=== PATIENT | male | born 1990 | race African-American/Black ===

== ENCOUNTER 2016-10-14 15:47 | Emergency (ER) | payer OTHER ==
[~2016-10-14] VITALS: Ht 177.8 cm; Wt 79.5 kg
[2016-10-14 15:56] VITALS: Ht 177.8 cm; Wt 79.5 kg
[2016-10-14] MEDS ORDERED: ONDANSETRON INJ 2 MG/ML 2 ML VIAL IV STA (16:12)
[2016-10-14] MEDS ORDERED: KETOROLAC TROMETHAMINE 30 MG/ML VIAL IV STA (16:12)
[2016-10-14] MEDS ORDERED: SODIUM CHLORIDE 0.9% 1000ML 1,000 ML IV ONE (16:15)
[2016-10-14] MEDS ORDERED: ACETAMINOPHEN IV 1,000 MG in EMPTY BAG 0 ML IV ONE (16:15)
[2016-10-14 16:48] LABS: URINE APPEARANCE CLEAR (CLEAR); URINE BILIRUBIN NEG (NEG); URINE COLOR YELLOW; URINE NITRITE NEG (NEG); URINE PH 6.5 (4.5-7.5); URINE SPECIFIC GRAVITY 1.028 (1.000-1.030); UROBILINOGEN NEG (NEG); ZZUR CULT IF INDIC CLEAN CATCH NO
[2016-10-14 16:49] LABS: MANUAL MICROSCOPIC REQUIRED? NO; REVIEW REQ? NO
[2016-10-14] MEDS ORDERED: OPTIRAY 320 IV PRN (17:00)
[2016-10-14 17:08] LABS: BASO % 0.5 %; BASO ABS # 0.03 K/uL (0-0.2); COMPLETE YES; HEMATOCRIT 43.8 % (42-52); IG% 0.3 %; LYMPH % 22.3 %; LYMPH ABS # 1.35 K/uL (1.2-3.4); MEAN CELL VOLUME 85.7 fL (80-100); MEAN CORPUSCULAR HEMOGLOBIN 28.8 pg (25-34); MEAN CORPUSCULAR HGB CONC 33.6 g/dl (32-36); MEAN PLATELET VOLUME 10.6 fL (7.4-10.4); MONO % 5.8 %; NEUT % 71.1 %; PLATELET COUNT 181 K/uL (130-400); RED BLOOD COUNT 5.11 M/uL (4.7-6.1); WHITE BLOOD COUNT 6.05 K/uL (4.8-10.8)
[2016-10-14 17:32] LABS: BUN/CREATININE RATIO 11.8 (10-20); CREATININE 1.2 mg/dl (0.60-1.40); POTASSIUM 4.3 mmol/L (3.5-5.1)
[2016-10-14 17:43] LABS: ALB/GLOB RATIO 0.8 (0.9-2); THYROID STIMULATING HORMONE 0.573 uIu/ml (0.300-4.500)
[2016-10-14 18:53] VITALS: TEMP 37
--- NOTE | 2016-10-14 19:02 | DIAGNOSTIC IMAGING REPORT ---
CT ABD/PELVIS IV AND ORAL CONT CLINICAL HISTORY: Abdominal pain fever, diarrhea. COMPARISON STUDY: None. TECHNIQUE: Following the IV administration of 117 mL of Optiray-320, CT scan of the abdomen and pelvis was performed from the lung bases to the proximal femurs. Images are reviewed in the axial, sagittal, and coronal planes. IV contrast was administered without complication. CT DOSE: 424.52 mGy.cm FINDINGS: Lower chest: There are minor dependent atelectatic changes. Liver: The contrast-enhanced liver is normal in size, contour, and attenuation. There is no intrahepatic biliary ductal dilatation. The hepatic veins and portal veins are patent. Gallbladder: Unremarkable. Spleen: Normal in size and attenuation. Pancreas: Unremarkable. Adrenal glands: Unremarkable. Kidneys: There is symmetric renal cortical enhancement. The kidneys are normal in size without hydronephrosis. Bowel: There are no transition zones indicate bowel obstruction. There is mild fecal retention. Evaluation the bowel is difficult due to a possibility of intra-abdominal fat. The appendix is not visualized with certainty. No pericecal inflammatory changes are visualized. There is no evidence of acute diverticulitis. Peritoneum: There is no intraperitoneal free air or abdominal ascites. There is rectus diastases. Vasculature: The abdominal aorta is normal in course and caliber. Adenopathy: There is mild nonspecific enlargement of aortocaval and iliac lymph nodes. Pelvic viscera: The bladder, and pelvic viscera are unremarkable. Skeletal structures: No destructive osseous lesions are seen. IMPRESSION: 1. No evidence of bowel obstruction. No evidence of free air 2. No acute inflammatory changes (difficult study to interpret due to the paucity of intra-abdominal fat) 3. Mild fecal retention. Please correlate with any symptoms of constipation. 4. Minor rectus diastases 5. Nonspecific mild enlargement of aortocaval and iliac lymph nodes. Electronically signed by: Ovidio Calderón M.D. 10/14/2016 7:01 PM Dictated Date/Time: 10/14/2016 6:51 PM
[2016-10-14] MEDS ORDERED: NORCO 5/325MG HOME PACK PO ONE (19:45)
[2016-10-14] MEDS ORDERED: ONDANSETRON HOME PACK 4MG OD TAB PO ONE (19:45)
[2016-10-14 19:58] VITALS: BP 115/63; PULSE 69; O2SAT 99
--- NOTE | 2016-10-14 22:22 | EMERGENCY ROOM VISIT NOTE ---
History First contact with patient: 15:58 Chief Complaint: ABDOMINAL PAIN Stated Complaint: ABDOMINAL PAIN, FEVER, FATIGUE, DIARRHEA, HEADACHE Nursing Triage Summary: triage note: pt reports mid abd 4-5 days ago. pt denies any nausea vomitting, diarrhea, constipation. History of Present Illness The patient is a 25 year old male who presents to the Emergency Room with complaints of abdominal pain, fatigue, and fever for the past 4-5 days. The patient does not have a history of abdominal surgery in the past. He is not have chest pain, chest tightness, or shortness of breath. He went to an urgent care clinic earlier today, and was referred to the ER for further evaluation. The patient has been using the bathroom as normal. He does not have chronic medical disease. He has been eating and drinking as normal. He does not report aggravating or alleviating factors. He rates his current discomfort a 5/ 10. He has not taken anything [id number] for his symptoms. Review of Systems More than 10 systems were reviewed and otherwise negative with the exception of history of present illness. Past Medical/Surgical History No chronic medical disease Family History No pertinent family history Social History Smoking Status: Never Smoker Alcohol Use: occasionally Drug Use: none Marital Status: single Current/Historical Medications No Active Prescriptions or Reported Meds Allergies Coded Allergies: No Known Allergies (Unverified , 10/14/16) Physical Exam Vital Signs Date Time Temp Pulse Resp B/P Pulse Ox O2 Delivery O2 Flow Rate FiO2 10/14/16 19:58 69 16 115/63 99 10/14/16 19:11 57 16 110/68 96 Room Air 10/14/16 18:53 37.0 10/14/16 17:59 63 16 120/63 97 Room Air 10/14/16 15:56 38.3 76 18 106/64 99 Room Air Pain Rating (0-10): 2.0 Physical Exam VITALS: Vitals are noted on the nurse's note and reviewed by myself. Vital signs stable. GENERAL: Well-developed, well-nourished, white male, who is in no acute distress and resting comfortably. Patient is cooperative with the examination. HEAD: Normocephalic atraumatic. HEART: Regular rate and rhythm without murmurs gallops or rubs. LUNGS: Clear to auscultation bilaterally without wheezes, rales or rhonchi. No retractions or accessory muscle use. ABDOMEN: Positive normal bowel sounds x 4. Soft with generalized periumbilical tenderness on palpation. No rebound or guarding. No CVA tenderness. MUSCULOSKELETAL: No muscle atrophy, erythema, or edema noted. Full range of motion without joint tenderness in all extremities. NEURO: Patient was alert and oriented to person place and time. CN II through XII grossly intact. Medical Decision & Procedures ER Provider Diagnostic Interpretation: CT ABD/PELVIS IV AND ORAL CONT CLINICAL HISTORY: Abdominal pain fever, diarrhea. COMPARISON STUDY: None. TECHNIQUE: Following the IV administration of 117 mL of Optiray-320, CT scan of the abdomen and pelvis was performed from the lung bases to the proximal femurs. Images are reviewed in the axial, sagittal, and coronal planes. IV contrast was administered without complication. CT DOSE: 424.52 mGy.cm FINDINGS: Lower chest: There are minor dependent atelectatic changes. Liver: The contrast-enhanced liver is normal in size, contour, and attenuation. There is no intrahepatic biliary ductal dilatation. The hepatic veins and portal veins are patent. Gallbladder: Unremarkable. Spleen: Normal in size and attenuation. Pancreas: Unremarkable. Adrenal glands: Unremarkable. Kidneys: There is symmetric renal cortical enhancement. The kidneys are normal in size without hydronephrosis. Bowel: There are no transition zones indicate bowel obstruction. There is mild fecal retention. Evaluation the bowel is difficult due to a possibility of intra-abdominal fat. The appendix is not visualized with certainty. No pericecal inflammatory changes are visualized. There is no evidence of acute diverticulitis. Peritoneum: There is no intraperitoneal free air or abdominal ascites. There is rectus diastases. Vasculature: The abdominal aorta is normal in course and caliber. Adenopathy: There is mild nonspecific enlargement of aortocaval and iliac lymph nodes. Pelvic viscera: The bladder, and pelvic viscera are unremarkable. Skeletal structures: No destructive osseous lesions are seen. IMPRESSION: 1. No evidence of bowel obstruction. No evidence of free air 2. No acute inflammatory changes (difficult study to interpret due to the paucity of intra-abdominal fat) 3. Mild fecal retention. Please correlate with any symptoms of constipation. 4. Minor rectus diastases 5. Nonspecific mild enlargement of aortocaval and iliac lymph nodes. Laboratory Results 10/14/16 16:34 Red Blood Count 5.11, Mean Corpuscular Volume 85.7, Mean Corpuscular Hemoglobin 28.8, Mean Corpuscular Hemoglobin Concent 33.6, Mean Platelet Volume 10.6, Neutrophils (%) (Auto) 71.1, Lymphocytes (%) (Auto) 22.3, Monocytes (%) (Auto) 5.8, Eosinophils (%) (Auto) 0.0, Basophils (%) (Auto) 0.5, Neutrophils # (Auto) 4.30, Lymphocytes # (Auto) 1.35, Monocytes # (Auto) 0.35, Eosinophils # (Auto) 0.00, Basophils # (Auto) 0.03 10/14/16 16:34 Test 10/14/16 16:25 10/14/16 16:34 10/14/16 17:24 Urine Color YELLOW Urine Appearance CLEAR (CLEAR) Urine pH 6.5 (4.5-7.5) Urine Specific [place] 1.028 (1.000-1.030) Urine Protein TRACE (NEG) Urine Glucose (UA) NEG (NEG) Urine Ketones TRACE (NEG) Urine Occult Blood NEG (NEG) Urine Nitrite NEG (NEG) Urine Bilirubin NEG (NEG) Urine Urobilinogen NEG (NEG) Urine Leukocyte Esterase NEG (NEG) Urine WBC (Auto) 1-5 /hpf (0-5) Urine RBC (Auto) 0-4 /hpf (0-4) Urine Hyaline Casts (Auto) 1-5 /lpf (0-5) Urine Epithelial Cells (Auto) 10-20 /lpf (0-5) Urine Bacteria (Auto) NEG (NEG) White Blood Count 6.05 K/uL (4.8-10.8) Red Blood Count 5.11 M/uL (4.7-6.1) Hemoglobin 14.7 g/dL (14.0-18.0) Hematocrit 43.8 % (42-52) Mean Corpuscular Volume 85.7 fL (80-100) Mean Corpuscular Hemoglobin 28.8 pg (25-34) Mean Corpuscular Hemoglobin Concent 33.6 g/dl (32-36) Platelet Count 181 K/uL (130-400) Mean Platelet Volume 10.6 fL (7.4-10.4) Neutrophils (%) (Auto) 71.1 % Lymphocytes (%) (Auto) 22.3 % Monocytes (%) (Auto) 5.8 % Eosinophils (%) (Auto) 0.0 % Basophils (%) (Auto) 0.5 % Neutrophils # (Auto) 4.30 K/uL (1.4-6.5) Lymphocytes # (Auto) 1.35 K/uL (1.2-3.4) Monocytes # (Auto) 0.35 K/uL (0.11-0.59) Eosinophils # (Auto) 0.00 K/uL (0-0.5) Basophils # (Auto) 0.03 K/uL (0-0.2) RDW Standard Deviation 42.4 fL (36.4-46.3) RDW Coefficient of Variation 13.4 % (11.5-14.5) Immature Granulocyte % (Auto) 0.3 % Immature Granulocyte # (Auto) 0.02 K/uL (0.00-0.02) Anion Gap 8.0 mmol/L (3-11) Est Creatinine Clear Calc Drug Dose 97.2 ml/min Estimated GFR () 96.8 Estimated GFR (Non- 83.5 BUN/Creatinine Ratio 11.8 (10-20) Calcium Level 9.0 mg/dl (8.5-10.1) Total Bilirubin 0.5 mg/dl (0.2-1) Aspartate Amino Transf (AST/SGOT) 20 U/L (15-37) Alanine Aminotransferase (ALT/SGPT) 23 U/L (12-78) Alkaline Phosphatase 69 U/L (45-117) Total Protein 8.9 gm/dl (6.4-8.2) Albumin 3.9 gm/dl (3.4-5.0) Globulin 5.0 gm/dl (2.5-4.0) Albumin/Globulin Ratio 0.8 (0.9-2) Lipase 98 U/L (73-393) Thyroid Stimulating Hormone (TSH) 0.573 uIu/ml (0.300-4.500) Monoscreen NEG (NEG) Lactic Acid Level 0.9 mmol/L (0.4-2.0) Medications Administered Medications (Trade) Dose Ordered Sig/Jasper Route Start Time Stop Time Status Last Admin Dose Admin Sodium Chloride (Nss 1000ml) 1,000 ml @ 999 mls/hr Q1H1M ONCE IV 10/14/16 16:15 10/14/16 17:15 DC 10/14/16 16:37 999 MLS/HR Ondansetron HCl (Zofran Inj) 4 mg NOW STAT IV 10/14/16 16:12 10/14/16 16:15 DC 10/14/16 16:38 4 MG Ketorolac Tromethamine 30 mg 30 mg NOW STAT IV 10/14/16 16:12 10/14/16 16:15 DC 10/14/16 16:37 30 MG Acetaminophen/ Empty Bag (Ofirmev Iv/ Empty Iv Bag 100ml) 100 ml @ 400 mls/hr NOW ONCE IV 10/14/16 16:15 10/14/16 16:29 DC 10/14/16 16:37 400 MLS/HR Acetaminophen/ Hydrocodone Bitart ([place] 5/325mg Home Pack) 1 homepack UD ONCE PO 10/14/16 19:45 10/14/16 19:46 DC 10/14/16 19:53 1 HOMEPACK Ondansetron HCl (ZOFRAN ODT 4MG Home Pack) 1 homepack UD ONCE PO 10/14/16 19:45 10/14/16 19:46 DC 10/14/16 19:53 1 HOMEPACK ED Course Physical exam and history were performed. Nursing notes and EMR were reviewed. Patient appears to have abdominal pain with a fever for the past few days. The patient does not appear toxic on examination. IV access was established and labs were obtained. The patient was hydrated and medicated as above. Because of his symptoms I did elect to perform a CT scan of his abdomen and pelvis. The patient's blood work is as above and was reviewed. He does not have a significant elevated white blood cell count, gross anemia, bandemia, or significant electrolyte imbalance. Lipase and transaminases are nondiagnostic. Lactic acid was negative with blood cultures pending. Urine is without signs of infection. The patient CT scan does not show an obvious distinct acute process. He may have some nonspecific lymph nodes, and this could be in the context of a viral infection. The patient was reevaluated multiple times throughout the course of his stay. Repeat abdominal examination does not show any worsening of his symptoms. He continues to be very comfortable on examination. I discussed options of care with the patient, and he does feel comfortable with discharge home. He will be given a short course of Zofran and Vicodin for symptomatic care. The patient is to follow closely with his primary care physician or return to the emergency department with any new, worsening, or concerning symptoms. He was pleased with this plan and voiced understanding. He rated his discomfort a 0/10 at the time of his departure. The chart was completed utilizing [employer] Voice Recognition Software. Grammatical errors, random word insertions, pronoun errors, and incomplete sentences are an occasional consequence of this system due to software limitations, ambient noise, and hardware issues. Any formal questions or concerns about the content, text, or information contained within the body of this dictation should be directly addressed to the provider for clarification. . Medical Decision Differential diagnosis: Etiologies such as appendicitis, diverticulitis, PUD, biliary pathology, UTI, pancreatitis, obstruction, mesenteric ischemia, aortic pathology, infections, inflammatory bowel disease, renal colic, as well as others were entertained. Impression Primary Impression: Abdominal pain Departure Information Dispostion Home / Self-Care Condition GOOD Prescriptions No Active Prescriptions or Reported Meds Forms HOME CARE DOCUMENTATION FORM, IMPORTANT VISIT INFORMATION Patient Instructions My [facility] Additional Instructions You were seen and evaluated today on an emergency basis only. This is not a substitute for, or an effort to provide, complete comprehensive medical care. It is not possible to recognize and treat all injuries or illnesses in a single emergency department visit. For this reason it is recommended that you followup with your primary care physician in the next few days for recheck of your condition. For baseline pain relief you may alternate ibuprofen and acetaminophen every 4 hours for pain control. Take 600 mg ibuprofen (Advil) and then 4 hours later take 1000 mg acetaminophen (Tylenol). Do not take more than 3000 mg acetaminophen in a single day. [place] (hydrocodone/acetaminophen) 5/325 mg (homepack) every 6 hours as needed for worsening breakthrough pain. Do not drink or drive on [place]. This medication will likely make you tired. Do not take [place] and Tylenol at the same time as both contain acetaminophen. [place] may cause constipation. You may wish to take an kzgl-rgd-rnbgurl stool softener like Colace if this occurs. Zofran (homepack) 1 tablet every 6 hrs as needed for nausea. You are welcome to return to the emergency department anytime with new, worsening, or concerning symptoms.
== END 2016-10-14 20:00 | disposition home or self-care (01) ==
LOC: C.EDB 15:50 → C.EDC 20:00
DX: R10.9 Unspecified abdominal pain (principal)

== ENCOUNTER 2016-12-12 13:32 | Emergency (ER) | payer OTHER ==
[~2016-12-12] VITALS: Ht 177.8 cm; Wt 81.5 kg
[2016-12-12 13:36] VITALS: TEMP 36.6; Ht 177.8 cm; Wt 81.5 kg
[2016-12-12] MEDS ORDERED: BUPIVACAINE 0.5 % 5 MG/1 ML MPF 30ML VIAL INFIL ONE (14:30)
[2016-12-12] MEDS ORDERED: XYLOCAINE 1%/SOD BICARB 20 ML VIAL INFIL ONE (14:30)
--- NOTE | 2016-12-12 15:44 | DIAGNOSTIC IMAGING REPORT ---
LEFT FINGER(S) MIN 2 VIEWS ROUTINE CLINICAL HISTORY: LEFT THUMB, PAIN AND SWELLING, PARONYCHIA COMPARISON: None FINDINGS: Alignment of the left thumb is anatomic. There is no fracture or osseous lesion. There is no evidence of osteomyelitis of the left thumb. Minimal degenerative changes are noted at the left first metacarpophalangeal joint. IMPRESSION: No fracture or evidence of osteomyelitis within the left thumb. Electronically signed by: Haris Reinoso M.D. 12/12/2016 3:42 PM Dictated Date/Time: 12/12/2016 3:41 PM
[2016-12-12] MEDS ORDERED: CEPH500C PO (16:53)
[2016-12-12] MEDS ORDERED: SULF800T23 PO (16:53)
--- NOTE | 2016-12-12 16:54 | EMERGENCY ROOM VISIT NOTE ---
ED Visit Note First contact with patient: 13:45 CHIEF COMPLAINT: Left thumb pain and swelling times one and half weeks Patient is a [id number] 26-year-old -[place] male who presents to the emergency department for evaluation of left thumb pain and swelling. His symptoms have been going on for about a week and a half. He denies any injury prior to the onset of his symptoms. He states that the nail fold " looks green", and it has become progressively more swollen. He tried soaking it in warm soapy water. His symptoms worsened after he bumped it last night. There has been no drainage or discharge from the area. He rates his pain a 3/ 10. REVIEW OF SYSTEMS: Review of systems as per HPI. All other systems reviewed were negative. At least 6 systems reviewed. PMH: Electronic medical records are reviewed and summarized as above/below. See Problem List. Tetanus is up-to-date. SOCIAL HISTORY: Patient living at home. Employed. Nonsmoker. PHYSICAL EXAM: Vital Signs: Reviewed Nurse's notes. Examination of the left thumb show slight swelling, tenderness and fluctuance of the ulnar nail fold. The thumb is circumferentially swollen, IP joint and MCP joints are nontender, and range of motion is full. There is no pus under the nail. There is no lymphangitic streaking up the hand. ED course: The patient was seen and evaluated as above. X-rays of the left thumb were obtained, negative for acute fracture, bony abnormality or osteomyelitic changes. The patient's finger was prepped with Betadine and draped sterilely. A digital block was performed using a 2:1 mixture of 1% plain buffered lidocaine area when adequate anesthesia was obtained, the affected nail fold was elevated from the cuticle and the nail. Abscess cavity was incised and purulent and bloody material was drained and more was expressed. The area was irrigated with normal saline solution. Patient tolerated the procedure well. Bacitracin and a light dressing were applied. Patient was encouraged to continue warm soapy water soaks. He was given a prescription for Keflex and Bactrim, however if his symptoms markedly improve in the next 24 hours, he can hold off on the antibiotics. I do not suspect osteomyelitis or infectious tenosynovitis. Medication reconciliation: I attest that I have personally reviewed the patient' s current medication list. Blood pressure screening : Patient was found to have normal blood pressure on screening and does not require follow-up. LEFT FINGER(S) MIN 2 VIEWS ROUTINE CLINICAL HISTORY: LEFT THUMB, PAIN AND SWELLING, PARONYCHIA COMPARISON: None FINDINGS: Alignment of the left thumb is anatomic. There is no fracture or osseous lesion. There is no evidence of osteomyelitis of the left thumb. Minimal degenerative changes are noted at the left first metacarpophalangeal joint. IMPRESSION: No fracture or evidence of osteomyelitis within the left thumb. Problem List Medical Problems: (1) Abdominal pain Status: Resolved (2) Abdominal pain Status: Resolved (3) Alcohol overdose Status: Resolved Current/Historical Medications Scheduled Cephalexin Monohydrate (Keflex), 500 MG PO TID Sulfa/Trimethoprim (Bactrim Ds 800MG/160MG), 1 TAB PO BID Allergies Coded Allergies: No Known Allergies (Unverified , 12/12/16) Vital Signs Date Time Temp Pulse Resp B/P (MAP) Pulse Ox O2 Delivery O2 Flow Rate FiO2 12/12/16 17:05 55 16 139/70 100 12/12/16 13:36 36.6 111 20 124/67 100 Room Air Medications Administered Medications (Trade) Dose Ordered Sig/Jasper Route Start Time Stop Time Status Last Admin Dose Admin Bupivacaine HCl ([place] 0.5% MPF Inj) 30 ml NOW ONCE INFIL 12/12/16 14:30 12/12/16 14:31 DC 12/12/16 14:30 30 ML Departure Information Impression Primary Impression: Paronychia of left thumb Prescriptions Sulfa/Trimethoprim (Bactrim Ds 800MG/160MG) Tab 1 TAB PO BID, #10 TAB Prov: Xenia Baum PA 12/12/16 Cephalexin Monohydrate (Keflex) 500 Mg Cap 500 MG PO TID, #15 CAP Prov: Xenia Baum PA 12/12/16 Referrals No Doctor, Assigned (PCP) Patient Instructions My [facility] Additional Instructions Dressing changes daily, more often if it becomes saturated or soiled. Cover with bandage and antibiotic ointment until healed. Warm soapy water soaks. Cephalexin(Keflex) 500mg: Take one pill 3 times daily for 5 days for your skin infection. All antibiotics can cause diarrhea. If this occurs and you feel worse or it does not resolve in 1-2 days follow up with your doctor or return to the Emergency Department as this could be signs of serious underlying problems. Any medication can cause an allergic reaction, stop the pills immediately and return to the ER for rash, hives, breathing difficulties, or swelling. Trimethoprim-Sulfamethoxazole(Bactrim DS): Take one pill twice daily for 5 days for your skin infection. All antibiotics can cause diarrhea. If this occurs and you feel worse or it does not resolve in 1-2 days follow up with your doctor or return to the Emergency Department as this could be signs of serious underlying problems. Any medication can cause an allergic reaction, stop the pills immediately and return to the ER for rash, hives, breathing difficulties, or swelling. Ibuprofen(Motrin, Advil) may be used for fever or pain. Use 600mg every six hours as needed. Take with food. Avoid using more than 2400mg in a 24 hour period. Do not use 2400mg per day for more than three consecutive days without physician direction. Prolonged inappropriate use can lead to stomach upset or ulcers. (AND/OR) Acetaminophen(Tylenol) may be used for fever or pain. Use 1000mg every six hours as needed. Avoid using more than 3000mg in a 24 hour period. Continue current medications. Return to the ER for severe pain, persistent fevers, spreading redness, or any worsening of your condition. Follow up with your primary physician within 2-3 days for a recheck of the current condition.
[2016-12-12 17:05] VITALS: BP 139/70; PULSE 55; O2SAT 100
== END 2016-12-12 17:07 | disposition home or self-care (01) ==
LOC: C.EDB 13:33 → C.EDD 17:07
DX: L03.012 Cellulitis of left finger (principal)